=== PATIENT | female | born 1980 | race American Indian/Alaskan Native ===

== ENCOUNTER 2017-11-15 13:09 | Inpatient (IN) | payer OTHER ==
[2017-11-15] MEDS ORDERED: Morphine 4 mg/ml ISec IVP STA (14:27)
[2017-11-15] MEDS ORDERED: Sodium Chloride 0.9% 1,000 ML IV STA (14:27)
[2017-11-15 15:06] LABS: BASO # 0.02 K/mm3 (0.0-2.0); BASO % 0.3 % (0.0-3.0); EOS # 0.1 (0.0-0.7); EOS % 0.7 % (1.5-5.0); GRAN # 5.3 (1.4-6.5); GRAN % 77.1 % (50.0-68.0); HEMOGLOBIN 14.3 g/dL (12.0-16.0); LYMPH # 1.2 (1.2-3.4); LYMPH % 16.7 % (22.0-35.0); MEAN CELL VOLUME 89.1 fl (80.0-105.0); MEAN CORPUSCULAR HEMOGLOBIN 28.8 pg (25.0-35.0); MEAN CORPUSCULAR HGB CONC 32.4 g/dl (31.0-37.0); MEAN PLATELET VOLUME 10.6 fl (7.0-11.0); MONO # 0.4 (0.1-0.6); MONO % 5.2 % (1.0-6.0); RBC 4.96 10^6/uL (3.5-6.1); WHITE BLOOD COUNT 6.9 10^3/ul (4.5-11.0)
[2017-11-15 15:08] LABS: URINE BILIRUBIN NEGATIVE (NEGATIVE); URINE BLOOD NEGATIVE (NEGATIVE); URINE GLUCOSE (UA) NEGATIVE (NEGATIVE); URINE LEUKOCYTE ESTERASE NEGATIVE Leu/uL (NEGATIVE); URINE NITRATE NEGATIVE (NEGATIVE); URINE PROTEIN NEGATIVE mg/dL (<30 mg/dL); URINE UROBILINOGEN 0.2 E.U./dL (<1 E.U./dL)
[2017-11-15 15:10] LABS: URINE APPEARANCE CLEAR (CLEAR); URINE COLOR YELLOW (YELLOW)
[2017-11-15 15:15] LABS: ALB/GLOB RATIO 1.3 (1.1-1.8); ALBUMIN 4.5 g/dL (3.0-4.8); ALT/SGPT 240 U/L (7-56); AST/SGOT 256 U/L (14-36); BLOOD UREA NITROGEN 14 mg/dL (7-21); CALCIUM 10.2 mg/dL (8.4-10.5); GFR AFRICAN-AMERICAN > 60; GFR NON-AFRICAN AMERICAN > 60; LIPASE 258 U/L (23-300)
--- NOTE | 2017-11-15 15:43 | ED PDOC ---
Arrival/HPI - General Chief Complaint: Abdominal Pain Time Seen by Provider: 11/15/17 13:37 Historian: Patient - History of Present Illness Narrative History of Present Illness (Text): 11/15/17 15:41 37yr old female presents today with 3 day history of epigastric pain and RUQ pain radiating to the right upper back. pt denies cp or sob. + vomiting and diarrhea. + nausea. no dizziness or weakness. pt denies urinary symptoms. pt states pain started 3 days ago as a gas-like feeling in the epigastrium which has slowly worsened. no medications taken for pain at home. no other complaints. Time/Duration: Other (3 days) Symptom Onset: Gradual Symptom Course: Worsening Quality: Aching, Stabbing Severity Level: 9 Past Medical History - Provider Review Nursing Documentation Reviewed: Yes - Travel History Have you recently traveled outside [place] w/in the past 3 mons?: No - Past History Past History: No Previous - Tetanus Immunization Tetanus Immunization: Unknown - Psychiatric Hx Substance Use: No - Surgical History Hx Section: Yes - Anesthesia Hx Anesthesia: Yes Hx Anesthesia Reactions: No Hx Malignant Hyperthermia: No Family/Social History - Physician Review Nursing Documentation Reviewed: Yes Family/Social History: Unknown Family HX Smoking Status: Never Smoked Hx Alcohol Use: Yes Hx Substance Use: No Allergies/Home Meds Allergies/Adverse Reactions: Allergies shellfish derived Allergy (Verified 11/15/17 13:25) ANAPHYLAXIS Home Medications: Home Meds Medication Instructions Recorded Confirmed No Known Home Med 11/15/17 11/15/17 Review of Systems - Review of Systems Constitutional: absent: Fatigue, Fevers Respiratory: absent: SOB, Cough Cardiovascular: absent: Chest Pain Gastrointestinal: Abdominal Pain, Diarrhea, Nausea, Vomiting. absent: Constipation Genitourinary Female: absent: Dysuria, Frequency, Hematuria, Vaginal Bleeding, Vaginal Discharge Musculoskeletal: Back Pain. absent: Arthralgias, Neck Pain Skin: absent: Rash, Pruritis Neurological: absent: Headache, Dizziness Psychiatric: absent: Anxiety, Depression, Suicidal Ideation Physical Exam Vital Signs Reviewed: Yes Vital Signs Temp Pulse Resp BP Pulse Ox 11/15/17 15:50 79 18 138/89 99 11/15/17 13:43 98.5 F 85 18 142/93 H 99 Temperature: Afebrile Blood Pressure: Hypertensive Pulse: Regular Respiratory Rate: Normal Appearance: Positive for: Well-Appearing, Non-Toxic, Comfortable Pain Distress: None Mental Status: Positive for: Alert and Oriented X 3 - Systems Exam Head: Present: Atraumatic Mouth: Present: Moist Mucous Membranes Neck: Present: Normal Range of Motion Respiratory/Chest: Present: Clear to Auscultation, Good Air Exchange. No: Respiratory Distress, Accessory Muscle Use Cardiovascular: Present: Regular Rate and Rhythm, Normal S1, S2. No: Murmurs Abdomen: Present: Tenderness (+ ruq and epigastric tenderness), Normal Bowel Sounds, Guarding. No: Distention, Peritoneal Signs, Rebound Back: Present: Normal Inspection. No: CVA Tenderness, Midline Tenderness, Paraspinal Tenderness Upper Extremity: Present: Normal ROM Lower Extremity: Present: Normal ROM. No: Edema Neurological: Present: GCS=15, Speech Normal Skin: Present: Warm, Dry, Normal Color. No: Rashes Psychiatric: Present: Alert, Oriented x 3 Medical Decision Making ED Course and Treatment: 11/15/17 15:51 Patient is nontoxic well appearing with stable vital signs presenting with ruq and epigastric abdominal pain CBC wnl CMP elevated ast and alt Lipase 250 Urinalysis; wnl Ultrasound: FINDINGS: LIVER: Measures 19.2 cm in sagittal dimension. Echogenic liver may be seen in setting of hepatic parenchymal disease or fatty infiltration. No focal hepatic mass identified. The main portal vein appears patent with normal directional flow. No intrahepatic bile duct dilatation. GALLBLADDER: Gallstones. No gallbladder wall thickening. Negative sonographic Montoya's sign as assessed by the cryptologic technician operator/analyst. COMMON BILE DUCT: Measures 4 mm. PANCREAS: Not well visualized. RIGHT KIDNEY: Measures 11.1 x 5.1 x 5.8cm. No obstructing calculus or hydronephrosis identified. LEFT KIDNEY: Measures 10.9 x 6.6 x 5.5cm. No obstructing calculus or hydronephrosis identified. SPLEEN: Measures approximately 9.2 cm. AORTA: Limited views appear unremarkable. IVC: Limited views appear unremarkable. OTHER FINDINGS: None. IMPRESSION: Echogenic liver may be seen in setting of hepatic parenchymal disease or fatty infiltration. Cholelithiasis. Patient reassessment: pt feeling better with medications; still with RUQ tenderness. vitals stable. case discussed with dr. benoit; accepts obs status admission for further evaluation of ruq abd pain, gallstones, elevated lfts. with GI and surgical consult. Impression: Abdominal pain, gallstones, elevated lfts admit observational status to med/surg. - Lab Interpretations Lab Results: 11/15/17 14:42 11/15/17 14:42 Lab Results 11/15/17 14:42: WBC 6.9, RBC 4.96, Hgb 14.3, Hct 44.2, MCV 89.1, MCH 28.8, MCHC 32.4, RDW 13.0, Plt Count 284, MPV 10.6, Gran % 77.1 H, Lymph % (Auto) 16.7 L, [place] % (Auto) 5.2, Eos % (Auto) 0.7 L, Baso % (Auto) 0.3, Gran # 5.30, Lymph # ( Auto) 1.2, [place] # (Auto) 0.4, Eos # (Auto) 0.1, Baso # (Auto) 0.02 11/15/17 14:42: Sodium 144, Potassium 4.6, Chloride 103, Carbon Dioxide 29, Anion Gap 17, BUN 14, Creatinine 0.8, Est GFR ( Amer) > 60, Est GFR (Non- Af Amer) > 60, Random Glucose 92, Calcium 10.2, Total Bilirubin 1.0, AST 256 H, ALT 240 H, Alkaline Phosphatase 68, Total Protein 7.9, Albumin 4.5, Globulin 3.4 , Albumin/Globulin Ratio 1.3, Lipase 258 11/15/17 14:42: Urine Color Yellow, Urine Appearance Clear, Urine pH 8.0, Ur Specific [place] 1.020, Urine Protein Negative, Urine Glucose (UA) Negative, Urine Ketones Negative, Urine Blood Negative, Urine Nitrate Negative, Urine Bilirubin Negative, Urine Urobilinogen 0.2, Ur Leukocyte Esterase Negative - RAD Interpretation Radiology Orders: 11/15/17 14:27 ABDOMEN COMPLETE [US] Stat 11/15/17 17:50 CHEST PORTABLE [RAD] Stat - Medication Orders Current Medication Orders: Discontinued Medications Famotidine (Pepcid) 20 mg IVP STAT STA Stop: 11/15/17 14:28 Last Admin: 11/15/17 15:02 Dose: 20 mg IVP Administration Document 11/15/17 15:02 GMD (Rec: 11/15/17 15:02 GMD [id number]) Charges for Administration # of IVP Administrations 1 Sodium Chloride (Sodium Chloride 0.9%) 1,000 mls @ 999 mls/hr IV .Q1H1M STA Stop: 11/15/17 15:27 Last Admin: 11/15/17 15:02 Dose: 999 mls/hr eMAR Start Stop Document 11/15/17 15:02 GMD (Rec: 11/15/17 15:02 [place]MD [facility] [id number][place] Intravenous Solution Start Date 11/15/17 Start Time 15:02 End Date 11/15/17 End time 16:03 Total Infusion Time 61 Morphine Sulfate (Morphine) 4 mg IVP STAT STA Stop: 11/15/17 14:28 Last Admin: 11/15/17 15:02 Dose: 4 mg MAR Pain Assessment Document 11/15/17 15:02 GMD (Rec: 11/15/17 15:02 [place]MD [facility] [id number][place] Pain Reassessment Is this a pain reassessment? No Sleep Is patient sleeping during reassessment? No Presence of Pain Presence of Pain Yes IVP Administration Document 11/15/17 15:02 GMD (Rec: 11/15/17 15:02 GMD [facility] [id number][place] Charges for Administration # of IVP Administrations 1 Disposition/Present on Arrival - Present on Arrival Any Indicators Present on Arrival: No History of DVT/PE: No History of Uncontrolled Diabetes: No Urinary Catheter: No History of Decub. Ulcer: No History Surgical Site Infection Following: None - Disposition Have Diagnosis and Disposition been Completed?: Yes Diagnosis: Abdominal pain, Gallstones, Elevated LFTs Disposition: HOSPITALIZED Disposition Time: 18:09 Patient Plan: Observation Condition: FAIR Referrals: Josephine Dsouza, [Primary Care Provider] - Follow up with primary Forms: [employer] (Ukrainian)
--- NOTE | 2017-11-15 17:29 | US ---
HISTORY: ruq, epigastric pain COMPARISON: None available. TECHNIQUE: Sonographic evaluation of the abdomen. FINDINGS: LIVER: Measures 19.2 cm in sagittal dimension. Echogenic liver may be seen in setting of hepatic parenchymal disease or fatty infiltration. No focal hepatic mass identified. The main portal vein appears patent with normal directional flow. No intrahepatic bile duct dilatation. GALLBLADDER: Gallstones. No gallbladder wall thickening. Negative sonographic Montoya's sign as assessed by the sr. vendor management associate. COMMON BILE DUCT: Measures 4 mm. PANCREAS: Not well visualized. RIGHT KIDNEY: Measures 11.1 x 5.1 x 5.8cm. No obstructing calculus or hydronephrosis identified. LEFT KIDNEY: Measures 10.9 x 6.6 x 5.5cm. No obstructing calculus or hydronephrosis identified. SPLEEN: Measures approximately 9.2 cm. AORTA: Limited views appear unremarkable. IVC: Limited views appear unremarkable. OTHER FINDINGS: None. IMPRESSION: Echogenic liver may be seen in setting of hepatic parenchymal disease or fatty infiltration. Cholelithiasis.
--- NOTE | 2017-11-15 17:59 | CARD ---
APPROVED REPORT EKG Measurement Heart [id number] CT [id number] <Conclusion> Normal sinus rhythm Nonspecific T wave abnormality Abnormal ECG
[2017-11-15] MEDS ORDERED: HYDROmorphone 2 mg/ml ISec IVP PRN (21:20)
[2017-11-15] MEDS: Dextrose 5%/0.45% NS 1,000 ML IV SCH (23:31)
[2017-11-15] MEDS: metroNIDAZOLE IV 250mg/50 ml 250 MG/50 ML BAG IV SCH (23:31)
[2017-11-16 00:53] VITALS: BMI 38.0
[2017-11-16] MEDS ORDERED: Influenza Vaccine 60 mcg/0.5 mL SYR (4YR UP) IM ONE (00:53)
[2017-11-16] MEDS: metroNIDAZOLE IV 250mg/50 ml 250 MG/50 ML BAG IV SCH ×3 (05:28→21:54)
--- NOTE | 2017-11-16 05:51 | CP.PCM.CON ---
<Adrien Estrella - Last Filed: 11/16/17 07:53> History of Present Illness - History of Present Illness History of Present Illness: General Surgery Consult HPI: 37F presented to ED complaining of epigastric and RUQ abd pain that began Sunday and got progressively worse. She has had the pain multiple times before, but never this severe. This time it began in the epigastrum and progressed to the RUQ. Associated with nausea and emesis. Denies fever, chills, headache, chest pain, SOB, diarrhea, constipation, urinary symptoms. Currently she had received pain medication and is without pain. PMH: Denies PSH: SH: No tobacco, EtOH or Durg use All: Shellfish - hives Meds: Denies Review of Systems - Review of Systems All systems: reviewed and no additional remarkable complaints except (as per HPI ) Past Patient History - Tetanus Immunizations Tetanus Immunization: Unknown - Past Social History Smoking Status: Never Smoked - CARDIAC Hx Cardiac Disorders: No - PULMONARY Hx Respiratory Disorders: No - NEUROLOGICAL Hx Neurological Disorder: Yes Hx Migraine: Yes - HEENT Hx HEENT Problems: No - RENAL Hx Chronic Kidney Disease: No - ENDOCRINE/METABOLIC Hx Endocrine Disorders: No - HEMATOLOGICAL/ONCOLOGICAL Hx Blood Disorders: No - INTEGUMENTARY Hx Dermatological Problems: No - MUSCULOSKELETAL/RHEUMATOLOGICAL Hx Musculoskeletal Disorders: Yes Hx Arthritis: Yes (possibly preliminary work up for rheumatoid arthritis) - GASTROINTESTINAL Hx Gastrointestinal Disorders: No - GENITOURINARY/GYNECOLOGICAL Hx Genitourinary Disorders: Yes Other/Comment: polycystic ovaries, cervix stitching, IVF, c section - PSYCHIATRIC Hx Psychophysiologic Disorder: Yes Hx Anxiety: Yes (history of anxioety attacks) - SURGICAL HISTORY Hx Surgeries: Yes Other/Comment: stitching of cervix, c section - ANESTHESIA Hx Anesthesia: Yes Hx Anesthesia Reactions: No Hx Malignant Hyperthermia: No Meds Allergies/Adverse Reactions: Allergies Allergy/AdvReac Type Severity Reaction Status Date / Time shellfish derived Allergy ANAPHYLAXIS Verified 11/15/17 13:25 - Medications Medications: Current Medications Acetaminophen (Tylenol 325mg Tab) 650 mg PO Q6H PRN PRN Reason: Fever >100.4 F Hydromorphone HCl (Dilaudid) 1 mg IVP Q4H PRN PRN Reason: Pain, moderate (4-7) Last Admin: 11/15/17 22:45 Dose: 1 mg Metronidazole (Flagyl) 250 mg in 50 mls @ 100 mls/hr IV Q8 KATHY PRN Reason: Protocol Stop: 11/20/17 22:01 Last Admin: 11/16/17 05:28 Dose: 100 mls/hr Ceftriaxone Sodium (Rocephin 1 Gram Ivpb) 1 gm in 100 mls @ 100 mls/hr IVPB DAILY [facility] PRN Reason: Protocol Dextrose/Sodium Chloride (Dextrose 5%/0.45% Ns 1000 Ml) 1,000 mls @ 100 mls/hr IV .Q10H [facility] Last Admin: 11/15/17 23:31 Dose: 100 mls/hr Ondansetron HCl (Zofran Inj) 4 mg IVP Q6H PRN PRN Reason: Nausea/Vomiting Last Admin: 11/16/17 00:04 Dose: 4 mg Pantoprazole Sodium (Protonix Inj) 40 mg IVP DAILY [facility] Physical Exam - Constitutional Appears: Non-toxic, No Acute Distress - Head Exam Head Exam: ATRAUMATIC, NORMOCEPHALIC - Eye Exam Eye Exam: EOMI. absent: Scleral icterus - ENT Exam ENT Exam: Mucous Membranes Dry Additional comments: trachea midline - Respiratory Exam Respiratory Exam: NORMAL BREATHING PATTERN. absent: Respiratory Distress - Cardiovascular Exam Cardiovascular Exam: RRR. absent: Bradycardia, Tachycardia - GI/Abdominal Exam GI & Abdominal Exam: Soft. absent: Distended, Firm, Guarding, Rebound, Rigid, Tenderness Additional comments: negative panda's sign - Rectal Exam Rectal Exam: Deferred - Extremities Exam Extremities exam: Positive for: normal capillary refill, pedal pulses present. Negative for: calf tenderness - Back Exam Back exam: absent: CVA tenderness (L), CVA tenderness (R) - Neurological Exam Neurological exam: Alert, Oriented x3 - Psychiatric Exam Psychiatric exam: Normal Affect, Normal Mood - Skin Skin Exam: Dry, Warm Results - Vital Signs Recent Vital Signs: Last Vital Signs Temp 97.7 F 11/15/17 22:25 Pulse 62 11/15/17 22:25 Resp 19 11/15/17 22:25 BP 127/79 11/15/17 22:25 Pulse Ox 99 11/15/17 21:02 - Labs Result Diagrams: 11/16/17 05:30 11/16/17 05:30 - Imaging and Cardiology US - abdomen Status: Image reviewed by me, Report reviewed by me Assessment & Plan - Assessment and Plan (Free Text) Assessment: 37F with biliary colic, cholelithiasis Plan: NPO IVF Analgesia PRN Zofran PRN Planning lap cholecystectomy today as this is a recurring issue and seems to be getting worse with continued episodes of pain. D/W Dr. Selwyn Estrella PGY4 <Tez Samano - Last Filed: 11/17/17 12:47> Meds - Medications Medications: Current Medications Acetaminophen (Tylenol 325mg Tab) 650 mg PO Q6H PRN PRN Reason: Fever >100.4 F Famotidine (Pepcid) 20 mg PO 1000,2200 [facility] Last Admin: 11/17/17 09:21 Dose: 20 mg Hydromorphone HCl (Dilaudid) 1 mg IVP Q4H PRN PRN Reason: Pain, severe (8-10) Last Admin: 11/17/17 09:31 Dose: 1 mg Metronidazole (Flagyl) 250 mg in 50 mls @ 100 mls/hr IV Q8 KATHY PRN Reason: Protocol Stop: 11/20/17 22:01 Last Admin: 11/17/17 05:11 Dose: 100 mls/hr Ceftriaxone Sodium (Rocephin 1 Gram Ivpb) 1 gm in 100 mls @ 100 mls/hr IVPB DAILY [facility] PRN Reason: Protocol Stop: 11/20/17 10:59 Last Admin: 11/17/17 09:28 Dose: 100 mls/hr Dextrose/Sodium Chloride (Dextrose 5%/0.45% Ns 1000 Ml) 1,000 mls @ 100 mls/hr IV .Q10H [facility] Last Admin: 11/17/17 04:32 Dose: 100 mls/hr Metoclopramide HCl (Reglan) 10 mg IV ONCE PRN PRN Reason: Nausea/Vomiting Ondansetron HCl (Zofran Inj) 4 mg IVP Q6H PRN PRN Reason: Nausea/Vomiting Last Admin: 11/16/17 00:04 Dose: 4 mg Oxycodone/Acetaminophen (Percocet 10/325 Mg Tab) 1 tab PO Q4H PRN PRN Reason: Pain, severe (8-10) Last Admin: 11/16/17 18:03 Dose: 1 tab Oxycodone/Acetaminophen (Percocet 5/325 Mg Tab) 1 tab PO Q4H PRN PRN Reason: Pain, moderate (4-7) Stop: 11/19/17 13:11 Results - Vital Signs Recent Vital Signs: Last Vital Signs Temp 98.2 F 11/17/17 08:01 Pulse 68 11/17/17 08:01 Resp 20 11/17/17 08:01 BP 117/71 11/17/17 08:01 Pulse Ox 98 11/17/17 08:01 - Labs Result Diagrams: 11/17/17 06:30 11/17/17 06:30 Labs: Laboratory Results - last 24 hr 11/17/17 11/17/17 06:30 06:30 WBC 9.0 D RBC 4.42 Hgb 12.5 Hct 39.0 MCV 88.2 MCH 28.3 MCHC 32.1 RDW 13.2 Plt Count 254 MPV 10.6 Gran % 74.6 H Lymph % (Auto) 18.2 L [place] % (Auto) 6.8 H Eos % (Auto) 0.3 L Baso % (Auto) 0.1 Gran # 6.70 H Lymph # (Auto) 1.6 [place] # (Auto) 0.6 Eos # (Auto) 0.0 Baso # (Auto) 0.01 Sodium 138 Potassium 3.6 Chloride 101 Carbon Dioxide 27 Anion Gap 14 BUN 16 Creatinine 0.7 Est GFR ( Amer) > 60 Est GFR (Non-Af Amer) > 60 Random Glucose 108 Calcium 9.4 Total Bilirubin 0.4 AST 134 H D ALT 481 H Alkaline Phosphatase 68 Total Protein 6.6 Albumin 3.7 Globulin 2.9 Albumin/Globulin Ratio 1.3 Assessment & Plan - Assessment and Plan (Free Text) Assessment: Worsrning symptoms-pt refuses to go home without surgery Discussed with SOT at bedside--Surgery 11/16/2017 This consult done under my direct supervision Diana Samano MD FACS
--- NOTE | 2017-11-16 06:48 | CP.PCM.CON ---
<Julianna Crane - Last Filed: 11/16/17 11:23> History of Present Illness - History of Present Illness History of Present Illness: Gi Consult note for Dr Wheeler's service. Reason for consult: RUQ abdominal pain, gallstones, elevated enzymes. Patient is a 37 y/o with no significant PMHx presenting with epigastric pain radiating to the right upper quadrant pain for 5 days. Patient states she was woken by the pain in the morning. States the pain was intermittent, however its now constant. Admits to nausea and vomiting 3 times yesterday. Denies fever or chills. Admits to having intermitted epigastric pain prior based on the type of foods she ate, however put it off because it resolved by itself. Denies diarrhea or dysurea. No prior history of liver disease. Denies Tylenol use. Was using Motrin prn with no significant relief in pain. PMHx: pcos PSHx: c -section FMHx: htn and DM, no cancers in the family Social: Denies tobacco, alcohol and illicit drug use. Home meds: none llergy: NKDA Review of Systems - Review of Systems All systems: reviewed and no additional remarkable complaints except Review of Systems: 12 point ROS reviewed, all negative except as per HPI. Past Patient History - Tetanus Immunizations Tetanus Immunization: Unknown - Past Social History Smoking Status: Never Smoked Alcohol: None Drugs: Denies Home Situation {Lives}: With Family - CARDIAC Hx Cardiac Disorders: No - PULMONARY Hx Respiratory Disorders: No - NEUROLOGICAL Hx Neurological Disorder: Yes Hx Migraine: Yes - HEENT Hx HEENT Problems: No - RENAL Hx Chronic Kidney Disease: No - ENDOCRINE/METABOLIC Hx Endocrine Disorders: No - HEMATOLOGICAL/ONCOLOGICAL Hx Blood Disorders: No - INTEGUMENTARY Hx Dermatological Problems: No - MUSCULOSKELETAL/RHEUMATOLOGICAL Hx Musculoskeletal Disorders: Yes Hx Arthritis: Yes (possibly preliminary work up for rheumatoid arthritis) - GASTROINTESTINAL Hx Gastrointestinal Disorders: No - GENITOURINARY/GYNECOLOGICAL Hx Genitourinary Disorders: Yes Other/Comment: polycystic ovaries, cervix stitching, IVF, c section - PSYCHIATRIC Hx Psychophysiologic Disorder: Yes Hx Anxiety: Yes (history of anxioety attacks) - SURGICAL HISTORY Hx Surgeries: Yes Other/Comment: stitching of cervix, c section - ANESTHESIA Hx Anesthesia: Yes Hx Anesthesia Reactions: No Hx Malignant Hyperthermia: No Meds Allergies/Adverse Reactions: Allergies Allergy/AdvReac Type Severity Reaction Status Date / Time shellfish derived Allergy ANAPHYLAXIS Verified 11/15/17 13:25 - Medications Medications: Current Medications Acetaminophen (Tylenol 325mg Tab) 650 mg PO Q6H PRN PRN Reason: Fever >100.4 F Hydromorphone HCl (Dilaudid) 1 mg IVP Q4H PRN PRN Reason: Pain, moderate (4-7) Last Admin: 11/15/17 22:45 Dose: 1 mg Metronidazole (Flagyl) 250 mg in 50 mls @ 100 mls/hr IV Q8 [facility]ES [facility] PRN Reason: Protocol Stop: 11/20/17 22:01 Last Admin: 11/16/17 05:28 Dose: 100 mls/hr Ceftriaxone Sodium (Rocephin 1 Gram Ivpb) 1 gm in 100 mls @ 100 mls/hr IVPB DAILY COUNT [facility]CLUDES [facility] PRN Reason: Protocol Dextrose/Sodium Chloride (Dextrose 5%/0.45% Ns 1000 Ml) 1,000 mls @ 100 mls/hr IV .Q10H COUNT INCLUDES THE [facility] Last Admin: 11/15/17 23:31 Dose: 100 mls/hr Ondansetron HCl (Zofran Inj) 4 mg IVP Q6H PRN PRN Reason: Nausea/Vomiting Last Admin: 11/16/17 00:04 Dose: 4 mg Pantoprazole Sodium (Protonix Inj) 40 mg IVP DAILY COUNT INCLUDES THE [facility] Physical Exam - Constitutional Appears: No Acute Distress - Head Exam Head Exam: ATRAUMATIC, NORMAL INSPECTION, NORMOCEPHALIC - Eye Exam Eye Exam: EOMI, Normal appearance, PERRL. absent: Scleral icterus Pupil Exam: NORMAL ACCOMODATION - ENT Exam ENT Exam: Mucous Membranes Moist - Neck Exam Neck exam: Positive for: Normal Inspection - Respiratory Exam Respiratory Exam: Clear to Auscultation Bilateral, NORMAL BREATHING PATTERN. absent: Rales, Rhonchi, Wheezes, Respiratory Distress, Stridor - Cardiovascular Exam Cardiovascular Exam: REGULAR RHYTHM, RRR, +S1, +S2. absent: Systolic Murmur - GI/Abdominal Exam GI & Abdominal Exam: Normal Bowel Sounds, Soft, Tenderness (epigastric). absent : Distended, Firm, Guarding, Organomegaly, Rebound, Rigid - Extremities Exam Extremities exam: Positive for: normal inspection - Back Exam Back exam: NORMAL INSPECTION - Neurological Exam Neurological exam: Alert, Oriented x3 - Psychiatric Exam Psychiatric exam: Normal Affect, Normal Mood - Skin Skin Exam: Dry, Intact, Normal Color, Warm Results - Vital Signs Recent Vital Signs: Last Vital Signs Temp 97.7 F 11/15/17 22:25 Pulse 62 11/15/17 22:25 Resp 19 11/15/17 22:25 BP 127/79 11/15/17 22:25 Pulse Ox 99 11/15/17 21:02 - Labs Result Diagrams: 11/16/17 05:30 11/16/17 05:30 Assessment & Plan - Assessment and Plan (Free Text) Assessment: Patient is a 37 y/o with no significant PMHx presenting with epigastric pain radiating to the right upper quadrant pain for 5 days. Abdominal U/S with fatty liver infiltration, and cholelithiasis. Labs with transaminitis. 1- Epigastric pain radiation to the right upper quadrant- differentials include cholecystitis versus PUD versus GERD 2- Transaminitis- r/o hepatitis/viral, autoimmune hepatitis/PBC. fatty liver Plan: - Patient to go for cholecystectomy as per surgery - On Rocephin and flagyl - continue ppi and anti emetics prn - will obtain hep panel, wilma, ama, and anti smooth antibody - Trend LFTs. - Pain management - post op care as per surgery Patient seen, examined and case discussed with Dr Wheeler. - Date & Time Date: 11/16/17 Time: 06:45 <Gómez Wheeler Y - Last Filed: 11/16/17 12:13> Meds - Medications Medications: Current Medications Acetaminophen (Tylenol 325mg Tab) 650 mg PO Q6H PRN PRN Reason: Fever >100.4 F Hydromorphone HCl (Dilaudid) 1 mg IVP Q4H PRN PRN Reason: Pain, moderate (4-7) Last Admin: 11/15/17 22:45 Dose: 1 mg Metronidazole (Flagyl) 250 mg in 50 mls @ 100 mls/hr IV Q8 [facility] PRN Reason: Protocol Stop: 11/20/17 22:01 Last Admin: 11/16/17 05:28 Dose: 100 mls/hr Ceftriaxone Sodium (Rocephin 1 Gram Ivpb) 1 gm in 100 mls @ 100 mls/hr IVPB DAILY [facility] PRN Reason: Protocol Dextrose/Sodium Chloride (Dextrose 5%/0.45% Ns 1000 Ml) 1,000 mls @ 100 mls/hr IV .Q10H [facility] Last Admin: 11/15/17 23:31 Dose: 100 mls/hr Ondansetron HCl (Zofran Inj) 4 mg IVP Q6H PRN PRN Reason: Nausea/Vomiting Last Admin: 11/16/17 00:04 Dose: 4 mg Pantoprazole Sodium (Protonix Inj) 40 mg IVP DAILY COUNT INCLUDES [facility] Results - Vital Signs Recent Vital Signs: Last Vital Signs Temp 98.4 F 11/16/17 09:20 Pulse 74 11/16/17 09:20 Resp 18 11/16/17 09:20 BP 124/81 11/16/17 09:20 Pulse Ox 99 11/16/17 09:20 - Labs Result Diagrams: 11/16/17 05:30 11/16/17 05:30 Attending/Attestation - Attestation I have personally seen and examined this patient.: Yes I have fully participated in the care of the patient.: Yes I have reviewed all pertinent clinical information: Yes Notes (Text): 11/16/17 12:08 I have seen and examined patient with GI fellow and phlebotomist medical lab assistant. Agree with above documentation with the following additions. In brief, this is a 37 year old female with history of obesity (BMI 38) who presents to hospital with progressive abdominal pain for the past 5 days. The pain is constant, daily, located in epigastric region, 8/10 intensity, that is worse after meal consumption. This was associated with three episodes of non-bloody emesis and nausea. She describes similar pain over the past 2 years, though recently episodes have become more frequent. She otherwise denies fever/chills, weight loss, rectal bleeding, change in bowel habits, excessive ETOH or tylenol use. No prior endoscopic evaluation. Obesity Abdominal pain, progressive Transaminitis Abdominal US reviewed by me showing +cholelithiasis, normal caliber CBD - NPO - Patient scheduled for surgical intervention today (cholecystectomy) - Continue with antibiotic therapy, monitor blood culture results - Continue to monitor LFTs - Obtain viral hepatitis and autoimmune panels - Further management as per surgical team. No further planned GI intervention, will sign off case. Suggest additional outpatient follow up. Please reconsult as necessary, thank you.
[2017-11-16 07:01] LABS: BASO # 0.01 K/mm3 (0.0-2.0); BASO % 0.2 % (0.0-3.0); EOS # 0.1 (0.0-0.7); EOS % 1.3 % (1.5-5.0); GRAN # 3.23 (1.4-6.5); GRAN % 59.9 % (50.0-68.0); HEMOGLOBIN 13.1 g/dL (12.0-16.0); LYMPH # 1.8 (1.2-3.4); LYMPH % 33.8 % (22.0-35.0); MEAN CELL VOLUME 89.3 fl (80.0-105.0); MEAN CORPUSCULAR HEMOGLOBIN 28.1 pg (25.0-35.0); MEAN CORPUSCULAR HGB CONC 31.5 g/dl (31.0-37.0); MEAN PLATELET VOLUME 11.3 fl (7.0-11.0); MONO # 0.3 (0.1-0.6); MONO % 4.8 % (1.0-6.0); RBC 4.66 10^6/uL (3.5-6.1); RED CELL DISTRIBUTION WIDTH 13.2 % (11.5-14.5); WHITE BLOOD COUNT 5.4 10^3/ul (4.5-11.0)
[2017-11-16 07:13] LABS: ALB/GLOB RATIO 1.3 (1.1-1.8); ALBUMIN 3.9 g/dL (3.0-4.8); ALT/SGPT 696 U/L (7-56); AST/SGOT 358 U/L (14-36); BLOOD UREA NITROGEN 15 mg/dL (7-21); CALCIUM 9.6 mg/dL (8.4-10.5); GFR AFRICAN-AMERICAN > 60; GFR NON-AFRICAN AMERICAN > 60; HDL CHOLESTEROL 40 mg/dL (29-60)
[2017-11-16 07:14] LABS: LDL CHOLESTEROL 117 mg/dL (0-129)
--- NOTE | 2017-11-16 07:54 | HP ---
HISTORY OF PRESENT ILLNESS: The patient is a 37-year-old who came to the emergency room because of increasing abdominal pain and feeling nauseous. This has been going on for the last 3 to 4 days. Pain started in the epigastrium and was radiating to the right upper abdomen, going to the epigastrium towards the back. Denies any fevers or chills. Did have nausea and vomited. No diarrhea. Complaining of feeling bloated. PAST MEDICAL HISTORY: Significant for being overweight. ALLERGIES: SHE IS ALLERGIC TO SHELLFISH. MEDICATIONS AT HOME: She is not on any medications. SOCIAL HISTORY: Denies smoking. Does drink socially. REVIEW OF SYSTEMS: Significant for epigastric and right upper quadrant pain along with bloating. PHYSICAL EXAMINATION GENERAL: On examination, she is alert, awake, and oriented, communicative, overweight. VITAL SIGNS: She is afebrile. Pulse 85, respirations 18, and blood pressure 142/93. LUNGS: Bilateral fair airflow. No rhonchi or crackles. HEART: S1 and S2 audible. ABDOMEN: Soft, obese, and nontender. Slight epigastric discomfort and right upper quadrant discomfort. NEUROLOGIC: She is awake, alert, oriented, and communicative. DATA: Urine is clear. WBC 6.9, hemoglobin 14, hematocrit 44, and platelets 284,000. Chemistries: Sodium 144, potassium 4.6, chloride 103, CO2 29, BUN 14, and creatinine 0.3. Blood sugar of 92. AST 256, ALT 240 and alkaline phosphatase 268. ASSESSMENT 1. Epigastric pain. 2. Cholelithiasis. 3. Abnormal liver function tests. 4. Morbid obesity. PLAN: We will keep the patient n.p.o. We will give her IV fluids, IV antibiotics, and IV PPI. Analgesic as needed and then, we will follow up. CBC and CMP in the morning. Joe Azul MD
--- NOTE | 2017-11-16 08:58 | RAD ---
HISTORY: abd pain COMPARISON: No prior. FINDINGS: LUNGS: No active pulmonary disease. PLEURA: No significant pleural effusion identified, no pneumothorax apparent. CARDIOVASCULAR: Normal. OSSEOUS STRUCTURES: No significant abnormalities. VISUALIZED UPPER ABDOMEN: Normal. OTHER FINDINGS: None. IMPRESSION: No active disease.
[2017-11-16] MEDS ORDERED: Propofol 10 mg/ml Inj (20 ML) ONE (10:10)
[2017-11-16] MEDS ORDERED: Midazolam 2 MG/2 ML VIAL ONE (10:10)
[2017-11-16] MEDS ORDERED: Rocuronium 10 mg/ml (5 ml) ONE (10:13)
[2017-11-16] MEDS ORDERED: Bupivacaine 0.5% Inj(30mL) ONE (10:15)
[2017-11-16] MEDS ORDERED: Iohexol 240 (50 ml) ONE (10:15)
[2017-11-16] MEDS ORDERED: Desflurane Inhalation Anesthetic Liq (240 ml) ONE (11:00)
[2017-11-16] MEDS ORDERED: Glycopyrrolate 0.2 mg/ml (2ml vial) ONE (11:12)
[2017-11-16 12:23] LABS: HEPATITIS B SURFACE AG Negative (NEGATIVE)
[2017-11-16 12:29] LABS: HEPATITIS A IGM NEGATIVE (NEGATIVE); HEPATITIS B CORE AB NEGATIVE (NEGATIVE)
[2017-11-16 12:43] LABS: HEPATITIS C ANTIBODY NEGATIVE (NEGATIVE)
[2017-11-16] MEDS ORDERED: HYDROmorphone 0.5 mg/0.5 ml ISec IVP PRN (13:08)
[2017-11-16] MEDS ORDERED: Oxycodone/Acetaminophen 10/325 mg Tab PO PRN (13:10)
[2017-11-16] MEDS ORDERED: Oxycodone/Acetaminophen 5/325 mg Tab PO PRN (13:10)
--- NOTE | 2017-11-16 13:10 | PCM.SURG1 ---
Surgeon's Initial Post Op Note - Surgeon's Notes Surgeon: Dr. Samano Art Specialist: Dr. Tapia PGY3, Dr. Petty PGY2 Type of Anesthesia: General Endo, Local Pre-Operative Diagnosis: acute cholecystitis Operative Findings: acute inflammed gallbladder Post-Operative Diagnosis: same Operation Performed: laparoscopic cholecystectomy with intraoperative cholangiogram Specimen/Specimens Removed: gallbladder Estimated Blood Loss: EBL {In ML}: 20 Blood Products Given: N/A Drains Used: No Drains Post-Op Condition: Good Date of Surgery/Procedure: 11/16/17 Time of Surgery/Procedure: 13:09
[2017-11-16] MEDS ORDERED: HYDROmorphone 0.5 mg/0.5 ml ISec ONE (13:36)
[2017-11-16] MEDS ORDERED: HYDROmorphone 1 mg/ml ISec ONE (14:00)
[2017-11-16] MEDS: HYDROmorphone 2 mg/ml ISec IVP PRN ×2 (14:47→19:30)
[2017-11-16] MEDS: cefTRIAXone 1 gm 1 GM/100 ML BAG IVPB SCH ×2 (14:49→21:35)
--- NOTE | 2017-11-16 17:27 | RAD ---
PROCEDURE: Intraoperative cholangiogram HISTORY: ? CBD OBST COMPARISON: None TECHNIQUE: Standard protocol for this study/examination. FINDINGS: Total fluoroscopic time (continuous mode) utilized during the procedure: 10.1 seconds. Total exam DLP: (mGy): 1.68. No abnormalities with respect to visualized common bile duct and biliary radicles. IMPRESSION: Submitted images from the current procedure: 1.0.
[2017-11-16] MEDS: Dextrose 5%/0.45% NS 1,000 ML IV SCH (19:44)
[2017-11-16 21:31] VITALS: RESP 20
--- NOTE | 2017-11-16 21:54 | PN ---
DATE: SUBJECTIVE: The patient is a 37-year-old who was admitted with abdominal discomfort, found to have cholelithiasis, underwent cholecystectomy. PHYSICAL EXAMINATION: VITAL SIGNS: She is afebrile, pulse 79, respiration 19, blood pressure 130/77. LUNGS: Bilateral fair air flow. No rhonchi or crackle. HEART: S1 and S2, audible. ABDOMEN: Soft, nontender. No rebound. No guarding. Complaining of abdominal discomfort. NEUROLOGICAL: She is awake, alert, and communicative. LABORATORY DATA: WBC is 5.4, hemoglobin 13, hematocrit 41, platelet of 274. Chemistry: Sodium 141, potassium 4.1, chloride 104, CO2 of 28, BUN 15, creatinine 0. , blood sugar of 105. Her AST 358, ALT 696. ASSESSMENT: 1. Acute cholecystitis, status post cholecystectomy. 2. Morbid obesity. 3. Hypertension. PLAN: Currently, the patient is on IV antibiotics. She is on clear liquid. She is on IV fluid. Analgesic as needed and we will follow up her LFTs in a.m. Joe Azul MD
[2017-11-17] MEDS: HYDROmorphone 2 mg/ml ISec IVP PRN ×3 (02:10→17:56)
[2017-11-17] MEDS: Dextrose 5%/0.45% NS 1,000 ML IV SCH ×2 (04:32→15:56)
[2017-11-17] MEDS: metroNIDAZOLE IV 250mg/50 ml 250 MG/50 ML BAG IV SCH ×3 (05:11→21:36)
[2017-11-17 07:01] LABS: BASO # 0.01 K/mm3 (0.0-2.0); BASO % 0.1 % (0.0-3.0); EOS % 0.3 % (1.5-5.0); GRAN # 6.7 (1.4-6.5); GRAN % 74.6 % (50.0-68.0); HEMOGLOBIN 12.5 g/dL (12.0-16.0); LYMPH # 1.6 (1.2-3.4); LYMPH % 18.2 % (22.0-35.0); MEAN CELL VOLUME 88.2 fl (80.0-105.0); MEAN CORPUSCULAR HEMOGLOBIN 28.3 pg (25.0-35.0); MEAN CORPUSCULAR HGB CONC 32.1 g/dl (31.0-37.0); MEAN PLATELET VOLUME 10.6 fl (7.0-11.0); MONO # 0.6 (0.1-0.6); MONO % 6.8 % (1.0-6.0); RBC 4.42 10^6/uL (3.5-6.1); RED CELL DISTRIBUTION WIDTH 13.2 % (11.5-14.5)
[2017-11-17 07:23] LABS: ALB/GLOB RATIO 1.3 (1.1-1.8); ALBUMIN 3.7 g/dL (3.0-4.8); ALT/SGPT 481 U/L (7-56); AST/SGOT 134 U/L (14-36); BLOOD UREA NITROGEN 16 mg/dL (7-21); CALCIUM 9.4 mg/dL (8.4-10.5); GFR AFRICAN-AMERICAN > 60; GFR NON-AFRICAN AMERICAN > 60
[2017-11-17] MEDS: cefTRIAXone 1 gm 1 GM/100 ML BAG IVPB SCH (09:28)
--- NOTE | 2017-11-17 12:38 | CP.PCM.PCO ---
Physician Communication Note - Physician Communication Note Physician Communication Note: PO1:Unable to hold down food/Labs OK/Progress to glav-[id number]
--- NOTE | 2017-11-17 13:49 | CP.PCM.PN ---
Subjective - Date & Time of Evaluation Date of Evaluation: 11/17/17 Time of Evaluation: 13:46 - Subjective Subjective: Surgery: Dr. Samano Patient unable to tolerate po last night. Pain controlled. Denies f/c. Objective - Vital Signs/Intake and Output Vital Signs (last 24 hours): Temp Pulse Resp BP Pulse Ox 98.2 F 68 20 117/71 98 11/17/17 08:01 11/17/17 08:01 11/17/17 08:01 11/17/17 08:01 11/17/17 08:01 Intake and Output: 11/17/17 11/17/17 06:59 18:59 Intake Total 1020 Balance 1020 - Medications Medications: Current Medications Acetaminophen (Tylenol 325mg Tab) 650 mg PO Q6H PRN PRN Reason: Fever >100.4 F Famotidine (Pepcid) 20 mg PO 1000,2200 [facility] Last Admin: 11/17/17 09:21 Dose: 20 mg Hydromorphone HCl (Dilaudid) 1 mg IVP Q4H PRN PRN Reason: Pain, severe (8-10) Last Admin: 11/17/17 09:31 Dose: 1 mg Metronidazole (Flagyl) 250 mg in 50 mls @ 100 mls/hr IV Q8 [facility] PRN Reason: Protocol Stop: 11/20/17 22:01 Last Admin: 11/17/17 05:11 Dose: 100 mls/hr Ceftriaxone Sodium (Rocephin 1 Gram Ivpb) 1 gm in 100 mls @ 100 mls/hr IVPB DAILY [facility] PRN Reason: Protocol Stop: 11/20/17 10:59 Last Admin: 11/17/17 09:28 Dose: 100 mls/hr Dextrose/Sodium Chloride (Dextrose 5%/0.45% Ns 1000 Ml) 1,000 mls @ 100 mls/hr IV .Q10H [facility] Last Admin: 11/17/17 04:32 Dose: 100 mls/hr Metoclopramide HCl (Reglan) 10 mg IV ONCE PRN PRN Reason: Nausea/Vomiting Ondansetron HCl (Zofran Inj) 4 mg IVP Q6H PRN PRN Reason: Nausea/Vomiting Last Admin: 11/16/17 00:04 Dose: 4 mg Oxycodone/Acetaminophen (Percocet 10/325 Mg Tab) 1 tab PO Q4H PRN PRN Reason: Pain, severe (8-10) Last Admin: 11/16/17 18:03 Dose: 1 tab Oxycodone/Acetaminophen (Percocet 5/325 Mg Tab) 1 tab PO Q4H PRN PRN Reason: Pain, moderate (4-7) Stop: 11/19/17 13:11 - Labs Labs: 11/17/17 06:30 11/17/17 06:30 - Constitutional Appears: Non-toxic, No Acute Distress - Head Exam Head Exam: ATRAUMATIC, NORMOCEPHALIC - Eye Exam Eye Exam: EOMI, Normal appearance - ENT Exam ENT Exam: Mucous Membranes Moist - Respiratory Exam Respiratory Exam: NORMAL BREATHING PATTERN. absent: Respiratory Distress - Cardiovascular Exam Cardiovascular Exam: REGULAR RHYTHM. absent: Tachycardia - GI/Abdominal Exam GI & Abdominal Exam: Soft. absent: Distended, Tenderness - Neurological Exam Neurological Exam: Alert, Awake - Psychiatric Exam Psychiatric exam: Normal Affect, Normal Mood - Skin Skin Exam: Normal Color, Warm Assessment and Plan - Assessment and Plan (Free Text) Assessment: 37 y/o female s/p lap thomas POD1 Plan: -ADAT -possible d/c Sunday if tolerating po -repeat labs -OOB -IS use -further recs per Dr. Selwyn Dumont PGY3
--- NOTE | 2017-11-17 17:31 | PN ---
DATE: SUBJECTIVE: The patient is a 37-year-old, seen and examined, complaining of discomfort at surgical site, complaining of feeling bloating. Otherwise, doing well. PHYSICAL EXAMINATION: VITAL SIGNS: She is afebrile, pulse 68, respirations 20, blood pressure 117/71. LUNGS: Bilateral good airflow. No rhonchi or crackle. HEART: S1 and S2 audible. ABDOMEN: Soft. Slight epigastric and periumbilical discomfort. NEUROLOGIC: She is awake, alert, oriented, communicative. LABORATORY DATA: WBC is 9.0, hemoglobin 12.5, hematocrit 39, platelet of 254. Chemistry: Sodium 138, potassium 3.6, chloride 101, CO2 of 27, BUN 16, creatinine 0.7, blood sugar of 108. LFT shows AST of 134 that has come down, ALT 481. Urinalysis is unremarkable. Hepatitis profile is negative. ASSESSMENT: 1. Acute cholecystitis, status post laparoscopic cholecystectomy. 2. Abnormal liver function tests, seems to be improving. 3. Hypertension. 4. Morbid obesity. PLAN: The patient is advised to ambulate. She is still on IV fluid, analgesic as needed. I will follow up her CBC and CMP in a.m. and discharge plan as per surgical team. Joe Azul MD
[2017-11-17] MEDS ORDERED: HYDROmorphone 0.5 mg/0.5 ml ISec IVP PRN (20:25)
[2017-11-18] MEDS: Dextrose 5%/0.45% NS 1,000 ML IV SCH (04:09)
[2017-11-18] MEDS: metroNIDAZOLE IV 250mg/50 ml 250 MG/50 ML BAG IV SCH (05:18)
[2017-11-18 06:37] LABS: BASO # 0.02 K/mm3 (0.0-2.0); BASO % 0.3 % (0.0-3.0); EOS # 0.1 (0.0-0.7); EOS % 1.2 % (1.5-5.0); GRAN # 3.29 (1.4-6.5); GRAN % 49.4 % (50.0-68.0); HEMOGLOBIN 12.2 g/dL (12.0-16.0); LYMPH # 2.8 (1.2-3.4); LYMPH % 41.5 % (22.0-35.0); MEAN CELL VOLUME 88.9 fl (80.0-105.0); MEAN CORPUSCULAR HEMOGLOBIN 28.1 pg (25.0-35.0); MEAN CORPUSCULAR HGB CONC 31.6 g/dl (31.0-37.0); MEAN PLATELET VOLUME 10.9 fl (7.0-11.0); MONO # 0.5 (0.1-0.6); MONO % 7.6 % (1.0-6.0); RBC 4.34 10^6/uL (3.5-6.1); RED CELL DISTRIBUTION WIDTH 13.3 % (11.5-14.5); WHITE BLOOD COUNT 6.7 10^3/ul (4.5-11.0)
[2017-11-18 06:45] LABS: ALB/GLOB RATIO 1.2 (1.1-1.8); ALBUMIN 3.6 g/dL (3.0-4.8); ALT/SGPT 318 U/L (7-56); AST/SGOT 76 U/L (14-36); BLOOD UREA NITROGEN 10 mg/dL (7-21); GFR AFRICAN-AMERICAN > 60; GFR NON-AFRICAN AMERICAN > 60
[2017-11-18 07:44] VITALS: BP 121/77; PULSE 72; TEMP 98.6; O2SAT 99
[2017-11-18] MEDS: cefTRIAXone 1 gm 1 GM/100 ML BAG IVPB SCH (09:28)
--- NOTE | 2017-11-18 09:39 | CP.PCM.PN ---
Subjective - Date & Time of Evaluation Date of Evaluation: 11/18/17 Time of Evaluation: 07:40 - Subjective Subjective: Patient see and examined at bedside this AM. Denies any nausea or vomiting currently. tolerated PO breakfast this AM. Had IV pain medication at 4AM. Not complaining of pain at this time. Objective - Vital Signs/Intake and Output Vital Signs (last 24 hours): Temp Pulse Resp BP Pulse Ox 98.6 F 72 20 121/77 99 11/18/17 07:43 11/18/17 07:43 11/18/17 07:43 11/18/17 07:43 11/18/17 07:43 - Medications Medications: Current Medications Acetaminophen (Tylenol 325mg Tab) 650 mg PO Q6H PRN PRN Reason: Fever >100.4 F Famotidine (Pepcid) 20 mg PO 1000,2200 [facility] Last Admin: 11/18/17 09:28 Dose: 20 mg Metronidazole (Flagyl) 250 mg in 50 mls @ 100 mls/hr IV Q8 [facility] PRN Reason: Protocol Stop: 11/20/17 22:01 Last Admin: 11/18/17 05:18 Dose: 100 mls/hr Ceftriaxone Sodium (Rocephin 1 Gram Ivpb) 1 gm in 100 mls @ 100 mls/hr IVPB DAILY [facility] PRN Reason: Protocol Stop: 11/20/17 10:59 Last Admin: 11/18/17 09:28 Dose: 100 mls/hr Metoclopramide HCl (Reglan) 10 mg IV ONCE PRN PRN Reason: Nausea/Vomiting Ondansetron HCl (Zofran Inj) 4 mg IVP Q6H PRN PRN Reason: Nausea/Vomiting Last Admin: 11/16/17 00:04 Dose: 4 mg Oxycodone/Acetaminophen (Percocet 10/325 Mg Tab) 1 tab PO Q4H PRN PRN Reason: Pain, severe (8-10) Last Admin: 11/16/17 18:03 Dose: 1 tab Oxycodone/Acetaminophen (Percocet 5/325 Mg Tab) 1 tab PO Q4H PRN PRN Reason: Pain, moderate (4-7) Stop: 11/19/17 13:11 - Labs Labs: 11/18/17 05:00 11/18/17 05:00 - Constitutional Appears: Well, Non-toxic, No Acute Distress - Head Exam Head Exam: ATRAUMATIC, NORMOCEPHALIC - Eye Exam Eye Exam: Normal appearance. absent: Conjunctival injection, Scleral icterus - ENT Exam ENT Exam: Mucous Membranes Moist, Normal Oropharynx - Respiratory Exam Respiratory Exam: NORMAL BREATHING PATTERN. absent: Accessory Muscle Use, Respiratory Distress - Cardiovascular Exam Cardiovascular Exam: RRR - GI/Abdominal Exam GI & Abdominal Exam: Soft, Tenderness (mild RUQ tenderness). absent: Distended Additional comments: incisions well approximated with dermabond, no surrounding erythema, drainage, or bleeding - Extremities Exam Extremities Exam: absent: Calf Tenderness, Pedal Edema, Tenderness - Neurological Exam Neurological Exam: Alert, Awake, Oriented x3 - Skin Skin Exam: Dry, Intact, Normal Color, Warm Assessment and Plan - Assessment and Plan (Free Text) Assessment: 37F with acute cholecystitis POD#2 s/p laparoscopic cholecystectomy Plan: -Discharge to home -F/U with Dr. Samano in this office in 1-2 weeks -PO pain medication -Return to ER for worsened abdominal pain, persistent nausea nd vomiting, fevers , or any other concerning symptoms. Seen and discussed with DR. Selwyn Petty PGY2
--- NOTE | 2017-11-18 11:24 | PN ---
DATE: SUBJECTIVE: The patient has no complaints of any chest pain. No shortness of breath, no headaches. OBJECTIVE VITAL SIGNS: Temperature is 98.6, pulse of 72, blood pressure is 121/77, respirations 18. GENERAL: The patient is lying in bed, flat, comfortable. HEENT: No oral lesion. Anicteric sclerae. Moist mucosa. NECK: No JVD, adenopathy, or thyromegaly. CARDIOVASCULAR: S1 and S2, regular. No murmurs, rubs, or gallops. LUNGS: Clear to auscultation bilaterally. No wheeze, rales, or rhonchi. ABDOMEN: Bowel sounds are positive. Soft, nontender and nondistended. EXTREMITIES: No cyanosis, clubbing or edema. LABORATORY DATA: White count of 6.7, hemoglobin 12.2. ASSESSMENT 1. Acute cholecystitis, status post cholecystectomy. 2. Transaminitis. 3. Hypertension. 4. Obesity with a body mass index of 38. PLAN: The patient is currently comfortable. She is able to tolerate her diet. We will wait for input from Surgery regarding discharge. The patient is on Pepcid. She is receiving Percocet for pain. She has been on Rocephin. She has no cultures. The patient's LFTs are improving. Dennis Boyer MD
--- NOTE | 2017-11-26 22:38 | OP ---
PROCEDURE DATE: 11/16/2017 ADMITTED TO: Room 360, bed 2. SURGEON: Tez Samano MD DATABASE MARKETING ANALYST: Dr. Regina DO, PGY-2 SECOND DATABASE MARKETING ANALYST: Jessica Petty DO, PGY-1. ANESTHESIA ADMINISTERED BY: PREOPERATIVE DIAGNOSES: 1. Cholecystitis, cholelithiasis. 2. Morbid obesity. POSTPERATIVE DIAGNOSES: 1. Cholecystitis, cholelithiasis. 2. Morbid obesity. PROCEDURE: On 11/16/2017 is a laparoscopic cholecystectomy with intraoperative cholangiogram. OPERATIVE INDICATIONS: The patient is a 37-year-old , morbidly obese female with recurring attacks of right upper quadrant pain, presumptively secondary to cholelithiasis. She has had multiple attacks but not as bad as this one and this one is unrelenting and persisting for several days (3-5 days). She was seen initially in the emergency room, admitted from there and due to the progression of the symptoms and non-resolution with conservative measures, she is recommended for laparoscopic cholecystectomy, which she insists be done at this point. Risks, benefits and alternatives with her anticipated outcomes were discussed and she signs for the informed consent after discussing this with her fiance, Mr. Pam Apple. OPERATIVE NOTE: The patient was brought to the operating room, identified by her wrist band, undergoes time-out procedure and was placed on the table in supine manner. Following the induction of general anesthesia, she undergoes the insertion of an endotracheal tube and the abdomen is prepped with Hibiclens, chlorhexidine preparation and aseptically draped. The umbilicus was elevated on towel clips, infiltrated as all port sites with the bupivacaine anesthetic and incision made. Total bupivacaine used during the case was 20 mL and a Veress needle was inserted into the peritoneal cavity and the abdomen insufflated to carbon dioxide gas to 14 mmHg. The needle was removed, replaced with a Visiport with visible endoscopic control and the blunt port was inserted into the peritoneal cavity utilizing the same. The abdomen is now explored demonstrating inflammatory changes in the right upper quadrant. Under direct vision, a right subxiphoid port was inserted and two 5 mm ports were placed in the right upper quadrant at the level of the umbilicus. The patient is rotated to the left in a reverse Trendelenburg position and the gallbladder grasped with prestige clamps. The jesus hepatis is dissected free and the cystic duct is identified completely and doubly hemoclipped and incised and intraoperative cholangiography performed. Following the intraoperative cholangiogram, the cystic artery was likewise identified and the critical view of safety is visualized and the artery was doubly hemoclipped as is the duct, transected and the gallbladder was removed from the liver bed in a prograde fashion utilizing electrocoagulating cautery. Extensive electrocoagulation was employed to prevent postoperative accessory duct leakage or bleeding from the liver bed. The gallbladder was brought up through the subxiphoid port, brought out, submitted to Pathology in formalin after culturing the contents. Port is now returned and the patient placed level supine and the right upper quadrant lavaged with normal saline solution until the return is completely clear and hemostasis was confirmed. Using the exit closure device, the 2 port sites were closed with interrupted 2-0 PDS suture and the skin with subcuticular closure and Dermabond adhesive. Dry dressings were placed over the same. The patient is awakened, extubated and transported to the recovery room in a satisfactory condition. Sponge, instrument and suture count were verified as correct at the end of the procedure. ESTIMATED BLOOD LOSS: Estimated blood loss during the procedure was less than 30 mL of blood. This dictation will be electronically signed without being read. Tez Samano MD
== END 2017-11-18 14:39 | disposition home or self-care (01) | DRG 419 ==
LOC: ED 13:09 → ERH 18:57 → 3RNO 22:14 → OBSVTOIN 11-16 07:22
PROVIDERS: ADMIT Internal Medicine; ATTEND Internal Medicine
PROC: BF101ZZ Fluoroscopy of Bile Ducts using Low Osmolar Contrast (ICD-10-PCS; 2017-11-16)
PROC: 0FT44ZZ Resection of Gallbladder, Percutaneous Endoscopic Approach (ICD-10-PCS; principal; 2017-11-16 10:30)
DX: K80.00 Calculus of gallbladder with acute cholecystitis without obstruction (principal); E66.01 Morbid (severe) obesity due to excess calories; K76.0 Fatty (change of) liver, not elsewhere classified; E28.2 Polycystic ovarian syndrome; I10 Essential (primary) hypertension; R94.5 Abnormal results of liver function studies; Z68.38 Body mass index [BMI] 38.0-38.9, adult